=== PATIENT | male | born 1945 | race Caucasian/White ===

== ENCOUNTER 2018-10-16 15:47 | Observation (INO) | payer MEDICARE, OTHER ==
[~2018-10-16] VITALS: Ht 180.3 cm; Wt 83.6 kg
[~2018-10-16 15:47] MED LIST: ALFU10 PO; CEPH500 PO; FLUTICASONE; LIVALO4 MG; MYRBETRIQ25 MG PO; ROSU10TA PO; [UNRECOGNIZED DRUG - OTHER] PO
[2018-10-16 16:19] LABS: BASOPHILS ABSOLUTE AUTO 0.05 K/mm3 (0.00-0.23); BASOPHILS PERCENT AUTO 1 % (0-2); EOSINOPHILS ABSOLUTE AUTO 0.04 K/mm3 (0.00-0.68); EOSINOPHILS PERCENT AUTO 1 % (0-6); Hematocrit 40.7 % (37.0-53.0); Hemoglobin 14.1 g/dL (13.5-17.5); IMMATURE GRAN ABSOLUTE AUTO 0.02 K/mm3 (0.00-0.10); IMMATURE GRAN PERCENT AUTO 0 % (0-1); LYMPHOCYTES ABSOLUTE AUTO 2.26 K/mm3 (0.84-5.20); LYMPHOCYTES PERCENT AUTO 37 % (21-46); MONOCYTES ABSOLUTE AUTO 0.42 K/mm3 (0.16-1.47); MONOCYTES PERCENT AUTO 7 % (4-13); Mean Corpuscular HGB 32.4 pg (26.0-34.0); Mean Corpuscular HGB Conc 34.6 g/dL (31.5-36.5); Mean Corpuscular Volume 94 fL (80-100); Mean Platelet Volume 9.4 fL (9.1-12.4); NEUTROPHILS ABSOLUTE AUTO 3.29 K/mm3 (1.96-9.15); NEUTROPHILS PERCENT AUTO 54 % (41-73); Platelet Count 225 K/mm3 (150-400); RDW Standard Deviation 41.9 fL (35.1-46.3); Red Blood Cell Count 4.35 M/mm3 (4.30-5.90); White Blood Cell Count 6.08 K/mm3 (4.00-11.30)
[2018-10-16 16:29] LABS: International Normalized Ratio 0.97
[2018-10-16 16:42] LABS: Alanine Aminotransfer (ALT/SGP 28 U/L (12-78); Albumin, Blood 4.1 g/dL (3.4-5.0); Albumin/Globulin Ratio 1.4 (0.8-1.8); Alk Phos 47 U/L (50-136); Anion Gap 10 mmol/L (6-16); Aspartate Aminotrans (AST/SGOT 23 U/L (12-37); Bilirubin, Total 0.8 mg/dL (0.1-1.0); Blood Urea Nitrogen 22 mg/dL (8-24); Bun/Creatinine Ratio 21.6 (12.0-20.0); CO2, Blood 22 mmol/L (21-32); Calcium, Blood 9.3 mg/dL (8.5-10.1); Chloride, Blood 108 mmol/L (98-108); Creatinine, Blood 1.02 mg/dL (0.60-1.20); Glomerular Filtration Rate >60 (60-); Glucose, Blood 113 mg/dL (70-99); Potassium, Blood 3.3 mmol/L (3.5-5.5); Sodium, Blood 140 mmol/L (136-145); Total Protein, Blood 7.1 g/dL (6.4-8.2)
[2018-10-16] MEDS ORDERED: PRAV20 PO (20:08)
[2018-10-16] MEDS ORDERED: TAMS.4ER PO (20:08)
[2018-10-16] MEDS ORDERED: UBID10 PO (20:09)
[2018-10-17 04:56] LABS: Anion Gap 7 mmol/L (6-16); Blood Urea Nitrogen 22 mg/dL (8-24); Bun/Creatinine Ratio 23.5 (12.0-20.0); CHOL/HDL RATIO 4.2; CO2, Blood 25 mmol/L (21-32); Calcium, Blood 8.4 mg/dL (8.5-10.1); Chloride, Blood 110 mmol/L (98-108); Cholesterol 228 mg/dL (50-200); Creatinine, Blood 0.94 mg/dL (0.60-1.20); Glomerular Filtration Rate >60 (60-); Glucose, Blood 111 mg/dL (70-99); HDL Cholesterol 54 mg/dL (>39); LDL/HDL RATIO 2.6; Low Density Lipoprotein Chol 139 mg/dL (0-110); Potassium, Blood 4.1 mmol/L (3.5-5.5); Sodium, Blood 142 mmol/L (136-145); Triglycerides 173 mg/dL (30-160); Very Low Density Lipoprot Chol 34 mg/dL (6-32)
--- NOTE | 2018-10-17 05:48 | NUR ---
SHIFT SUMMARY PT WAS A NEW ADMIT DURING THE NIGHT, ADMITTED FOR A CVA. HE IS A 73 Y/O, A&O X 4, AND ABLE TO WALK SBA. PT REPORTED THAT HE BEGAN FEELING DIZZY WHILE AT HOME YESTERDAY. HIS DIZZINESS HAS LESSENED SINCE HIS ARRIVAL TO THE HOSPITAL, BUT HE IS STILL REPORTING SOME MILD DIZZINESS. NO OTHER NEURO DEFICITS NOTED. VITAL SIGNS STABLE. PT DENIED ANY COMPLAINTS OF ACUTE PAIN, NAUSEA OR SOB AND SLEPT WELL THROUGH THE NIGHT. NO OTHER ACUTE CHANGES IN PT CONDITION NOTED. WILL CONTINUE TO MONITOR AND TREAT UNTIL HAND OFF TO DAY SHIFT.
[2018-10-17] MEDS ORDERED: ASPI81CH PO (15:08)
[2018-10-17] MEDS ORDERED: MECL12.5 PO (15:11)
--- NOTE | 2018-10-17 15:34 | NUR ---
DISCHARGE INSTRUCTIONS REVIEWED WITH PT AND SPOUSE. IV DC'D INTACT. RX FAXED TO [facility]. PT DC'D HOME AT 1550.
--- NOTE | 2018-10-17 16:27 | NUR ---
discharge PT HAS BEEN A/O X4 T/O DAY, STATE DIZZINESS/LIGHTHEADEDNESS HAS RESOLVED, NO OTHER NEURO DEFICITS. MRI & ECHO COMPLETED. DR BREWER REVIEW RESULTS OF TESTS WITH PT/, STATE MRI NEGATIVE FOR NEW CVA, OK FOR PT TO GO HOME, PLACE D/C ORDER. IV D/C INTACT, REFERRAL COORDINATOR REVIEW D/C INSTRUCT WITH PT/. PROGRAM DIRECTOR GROUP WORK PROVIDE W/C ESCORT FROM HOSP. PT IS PLEASANT/APPRECIATIVE.
[2018-11-15] MEDS ORDERED: Viagra100 MG (09:47)
[2018-11-15] MEDS ORDERED: ALFU10 (09:47)
[2018-11-15] MEDS ORDERED: NAPR220 (09:48)
[2018-11-15] MEDS ORDERED: REPATHA SU140 MG/1 M (09:48)
[2018-11-16] MEDS ORDERED: UBID10 PO (06:34)
[2018-11-16] MEDS ORDERED: ALFU10 PO (06:35)
[2018-11-16] MEDS ORDERED: EPIPEN 2-P0.3 MG/0.3 IM (06:35)
== END 2018-10-17 15:30 | disposition home or self-care (01) ==
LOC: ER 15:47 → MEDS 15:48 → ER 20:05 → MEDS 20:16
PROVIDERS: Emergency Medicine; ADMIT Internal Medicine
DX: R42 Dizziness and giddiness (principal); I16.0 Hypertensive urgency; E78.5 Hyperlipidemia, unspecified; E87.6 Hypokalemia; R00.0 Tachycardia, unspecified; F17.290 Nicotine dependence, other tobacco product, uncomplicated; Z79.899 Other long term (current) drug therapy; Z88.8 Allergy status to other drugs, medicaments and biological substances
CPT/HCPCS: 36415; 70450; 70544; 70551; 80048; 80053; 80061; 85025; 85610; 93005; 93010; 93306; 96372; 96374; 99285-25; G0378; J1650

== ENCOUNTER 2018-11-16 07:01 | Day surgery (SDC) | payer MEDICARE, OTHER ==
[~2018-11-16] VITALS: Ht 177.8 cm; Wt 85.7 kg
[~2018-11-16 07:01] MED LIST changes: +ALFU10; +ASPI81CH PO; +EPIPEN 2-P0.3 MG/0.3 IM; +MECL12.5 PO; +NAPR220; +PRAV20 PO; +REPATHA SU140 MG/1 M; +TAMS.4ER PO; +UBID10 PO; +Viagra100 MG
== END 2018-11-16 22:41 | disposition home or self-care (01) ==
LOC: MHTC 07:01
DX: I63.9 Cerebral infarction, unspecified (principal); Q21.1 Atrial septal defect; I25.3 Aneurysm of heart; F17.290 Nicotine dependence, other tobacco product, uncomplicated; I11.9 Hypertensive heart disease without heart failure; E78.5 Hyperlipidemia, unspecified
CPT/HCPCS: 93312; 93325; J2250; J7120

== ENCOUNTER → 2019-11-01 | Outpatient (CLI) | payer MEDICARE, OTHER | END | disposition home or self-care (01) | LOC: PLD 12:08 → LAB SHORT 12:08 | DX: L82.1 Other seborrheic keratosis (principal) | CPT/HCPCS: 88305 ==

== ENCOUNTER 2021-01-30 07:49 | Day surgery (SDC) | payer MEDICARE, OTHER ==
[~2021-01-30] VITALS: Ht 180.3 cm; Wt 87.1 kg
[~2021-01-30 07:49] MED LIST changes: +ASPI325EC PO; +EUTHYROX125 MCG PO; +METO50ER PO; +QUIN10 PO; +VITAMIN D325 MC3 PO
--- NOTE | 2021-01-30 10:34 | NUR ---
01/30/21 1034 Korin Barkley PT. TOOK SUTAB FOR HIS PREP.
== END 2021-01-30 10:10 | disposition home or self-care (01) ==
LOC: ORSCSDS 07:49
PROVIDERS: Internal Medicine Gastroenterology
PROC: 0DBM8ZX Excision of Descending Colon, Via Natural or Artificial Opening Endoscopic, Diagnostic (ICD-10-PCS; principal; 2021-01-30 09:15)
PROC: 0DBK8ZX Excision of Ascending Colon, Via Natural or Artificial Opening Endoscopic, Diagnostic (ICD-10-PCS; principal; 2021-01-30 09:15)
DX: Z12.11 Encounter for screening for malignant neoplasm of colon (principal); Z86.010 Personal history of colon polyps; D12.2 Benign neoplasm of ascending colon; D12.4 Benign neoplasm of descending colon; K57.30 Diverticulosis of large intestine without perforation or abscess without bleeding; I10 Essential (primary) hypertension; Z80.0 Family history of malignant neoplasm of digestive organs; Z79.82 Long term (current) use of aspirin; Z79.899 Other long term (current) drug therapy
CPT/HCPCS: 88305; J0330; J0461; J2405; J2704; J7120

== ENCOUNTER → 2022-12-23 | Outpatient (CLI) | payer MEDICARE, OTHER | END | disposition home or self-care (01) | LOC: LAB 11:32 → PLD 11:32 → LAB SHORT 11:32 | DX: D48.5 Neoplasm of uncertain behavior of skin (principal) | CPT/HCPCS: 88305 ==

== ENCOUNTER 2024-11-29 10:41 | Day surgery (SDC) | payer MEDICARE, OTHER ==
[~2024-11-29] VITALS: Ht 180.3 cm; Wt 87.8 kg
[~2024-11-29 10:41] MED LIST changes: +Lactated Ringer's 1,000 ML IV ONE; +propofoL 50 ML IV ONE
[2024-11-29] MEDS ORDERED: Lactated Ringer's 1,000 ML IV ONE (12:16)
[2024-11-29 14:09] VITALS: BP 119/78
== END 2024-11-29 14:08 | disposition home or self-care (01) ==
LOC: ORSCSDS 10:41
PROVIDERS: Internal Medicine Gastroenterology
PROC: 0DBN8ZX Excision of Sigmoid Colon, Via Natural or Artificial Opening Endoscopic, Diagnostic (ICD-10-PCS; principal; 2024-11-29 12:15)
PROC: 0DB78ZX Excision of Stomach, Pylorus, Via Natural or Artificial Opening Endoscopic, Diagnostic (ICD-10-PCS; principal; 2024-11-29 12:15)
PROC: 0DBK8ZX Excision of Ascending Colon, Via Natural or Artificial Opening Endoscopic, Diagnostic (ICD-10-PCS; principal; 2024-11-29 12:15)
DX: Z12.11 Encounter for screening for malignant neoplasm of colon (principal); Z86.0101 Personal history of adenomatous and serrated colon polyps; R13.10 Dysphagia, unspecified; D12.2 Benign neoplasm of ascending colon; K63.5 Polyp of colon; Z80.0 Family history of malignant neoplasm of digestive organs; K29.70 Gastritis, unspecified, without bleeding; K57.30 Diverticulosis of large intestine without perforation or abscess without bleeding; I10 Essential (primary) hypertension; E78.5 Hyperlipidemia, unspecified; Z86.73 Personal history of transient ischemic attack (TIA), and cerebral infarction without residual deficits; Z85.850 Personal history of malignant neoplasm of thyroid; Z85.820 Personal history of malignant melanoma of skin
CPT/HCPCS: 88305; 88341; 88342; J2704; J7120